=== PATIENT | female | born 1980 | race Caucasian/White ===

== ENCOUNTER 2019-06-08 09:37 | Day surgery (SDC) | payer OTHER, SELFPAY ==
[2019-06-01 08:19] VITALS: BMI 26.6
--- NOTE | 2019-06-02 08:10 | HP_ITS ---
Intake Vital Signs 06/01/19 Height 5 ft 5 in 06/01/19 Weight: 160 lb 8 oz 06/01/19 Body Mass Index (BMI) 26.6 06/01/19 Blood Pressure 98/64 06/01/19 Blood Pressure Location Rt brachial 06/01/19 Respiratory Rate 16 06/01/19 Pulse Rate 73 06/01/19 Pulse Ox 99 Intake Visit Reasons: C-Scope Consult - Self Ref due to family hx Chief Complaint: colonoscopy--family history Flight Dynamicist Required: No Is patient in pain?: No Allergies adhesive Allergy (Verified 06/01/19 08:19) Rash latex Allergy (Verified 06/01/19 08:19) Rash Penicillins Allergy (Verified 06/01/19 08:) Unknown codeine Adverse Reaction (Verified 06/01/19 08:) Vomiting Medications Etanercept [Enbrel] 50 mg SQ Q7D 02/27/15 [History Confirmed 06/01/19] prednisone 10 mg tablet 10 mg PO DAILY PRN 06/01/19 [History Confirmed 06/01/19] Is last menstrual period known: No Post menopausal: No Patient : No PFSH Medical History (Updated 06/01/19 @ 08:16 by Jennifer Gutierrez) Rheumatoid arthritis (Acute) Surgical History (Updated 06/01/19 @ 08:16 by Jennifer Gutierrez) History of section (Acute) History of section (Acute) History of section (Acute) History of colonoscopy (Acute ~2010) History of partial hysterectomy (Acute) History of wisdom tooth extraction (Acute) history of plantar fasciectomy (Acute) Family History (Updated 06/01/19 @ 08:18 by Jennifer Gutierrez) Father Colon cancer, Onset Age: 43 Mother Rheumatoid arthritis Grandmother Breast cancer Grandfather Cancer leukemia Social History (Updated 06/02/19 @ 08:10 by Lorenzo Clay MD) Smoking Status: Never smoker HPI HPI HPI: CHIN GARCIA, is a 38 F who presents to the office today for HPI HPI Surgical H&P: Yes HPI: CHIN GARCIA, is a 38 F who presents to the office today for colonoscopy. Patient reports she had colonoscopy in 2010. It was normal. She is due every 5 years as her father had colon cancer at age 43. She denies any abdominal pain or blood in her stool. ROS General General: No weight change, appetite, fatigue, colon cancer, breast cancer or weakness HEENT HEENT: No difficulty swallowing, eye injury, eye surgery, swollen glands or hoarseness Endo Endocrine: No thyroid disease, diabetes mellitus, thyroid cancer, Hair loss, heat intolerance or cold intolerance Musc Musculoskeletal: Yes rheumatoid arthritis; no back problems, arthritis, gout or joint pain Cardio Cardiovascular: No murmur, pacemaker, heart disease, atrial fibrillation, high blood pressure, heart attack, heart stent, palpitations, shortness of breat with exertion or chest pain Resp Respiratory: No shortness of breath, No sleep apnea, No cough, No COPD, No asthma, No emphysema, No wheezing Gastro Gastrointestinal: No abdominal pain, No nausea or vomiting, No diarrhea, No constipation, No blood in stool, No acid reflux, No hemorrhoids, No ulcers, No gallbladder problem, No black,tarry stools Javed Hematologic: No blood thinners, No blood disorders, No bleeding, No anemia, No blood clots Neuro Neurologic: No weakness Exam Const General: cooperative Orientation: alert, oriented x3 Resp Effort & Inspection: normal respiratory effort Auscultation: clear to auscultation bilaterally Cardio Rate: regular rate Rhythm: regular rhythm Heart Sounds: no murmurs GI Inspection: non-distended Palpation: soft, nontender Assessment & Plan Problems 1. Family history of malignant neoplasm of colon in first degree relative diagnosed when younger than 60 years of age Z80.0 Plan Patient has immediate family member which was diagnosed with cancer and under age 60. She is due for colonoscopy every 5 years. I explained endoscopy in detail to the patient. I explained the risks including but not limited to stroke or heart attack with anesthesia, perforation of the GI tract, bleeding, infection. I explained that any of these could necessitate further emergency surgery. The patient understands and all questions were answered sufficiently. The patient wishes to proceed with procedure. Lorenzo Clay MD Pager: [facility] [address] [place] [address] [place] [address] Office: Orders Orders: Colonoscopy 06/01/19 Z80.0 Coding Level of Care Code Off vis,new,level 3 Diagnoses Family history of malignant neoplasm of colon in first degree relative diagnosed when younger than 60 years of age Z80.0 06/02/19 0810 <Electronically signed by Lorenzo armendariz MD> Date _ Lorenzo Clay MD I have seen and reexamined the patient and there are no changes noted.
[2019-06-08 10:18] VITALS: BP 104/64; PULSE 56; RESP 16; TEMP 37.1; O2SAT 100; BMI 27.4
--- NOTE | 2019-06-08 11:18 | OP.ENDO_ITS ---
06/08/2019 Miguel Calvo Md Re : Colonoscopy procedure for Pattie Taylor Dear Umesh This procedure was performed on Saturday, June 08, 2019. My impressions and recommendations are as follows: Impressions : - The entire examined colon is normal on direct and retroflexion views. - No specimens collected. Recommendations : - Discharge patient to home. - Resume previous diet. - Continue present medications. - Repeat colonoscopy in 5 years for surveillance. My findings are described in the full procedure note, which is enclosed. If I can be of further assistance, please feel free to contact me at Doctor phone number(s): , Work: . Sincerely, Lorenzo Clay MD 06/08/2019 11:17:58 AM This report has been signed electronically.
[2019-06-08 11:20] VITALS: BP 104/64; BP 93/53; PULSE 70; RESP 16; TEMP 36.2; O2SAT 100
[2019-06-08 11:25] VITALS: BP 104/64; BP 95/59; PULSE 60; RESP 16; O2SAT 100
[2019-06-08 11:29] VITALS: BP 104/64; BP 95/64; PULSE 50; RESP 16; O2SAT 100
[2019-06-08 11:31] VITALS: BP 104/64; BP 97/62; PULSE 52; RESP 16; TEMP 36.3; O2SAT 100
[2019-06-08 12:16] VITALS: BP 104/64
== END 2019-06-08 12:17 | disposition home or self-care (01) ==
LOC: EN 09:38 → AC 09:40
PROVIDERS: Referring Provider Surgery; Visit Provider Surgery
PROC: 0DJD8ZZ Inspection of Lower Intestinal Tract, Via Natural or Artificial Opening Endoscopic (ICD-10-PCS; CPT 45378; principal; 2019-06-08 10:40)
DX: Z12.11 Encounter for screening for malignant neoplasm of colon (principal); M06.9 Rheumatoid arthritis, unspecified; Z88.0 Allergy status to penicillin; Z88.5 Allergy status to narcotic agent; Z91.040 Latex allergy status; Z80.0 Family history of malignant neoplasm of digestive organs
CPT/HCPCS: 45378; J7120

== ENCOUNTER → 2022-11-21 | Outpatient (CLI) | payer OTHER, SELFPAY ==
--- NOTE | 2022-11-21 16:31 | BI_ITS ---
MAMMOGRAPHY - BILATERAL SCREENING REASON FOR EXAM: Female, 42 years old. Routine annual screening examination. PERTINENT HISTORY: Grandmother with breast cancer. TECHNIQUE: Digital bilateral breast cliff (3D mammographic acquisition) in the CC and MLO projections. 2-D mediolateral oblique (MLO) and craniocaudad (CC) views of both breasts were obtained. CAD: Full Field Digital Mammography with Computer Added Detection was performed. COMPARISON: None. Baseline examination. FINDINGS: Breast Composition: The breasts are extremely dense, which lowers the sensitivity of mammography. There are no dominant masses or suspicious calcifications. No other significant abnormalities are identified. BI/SCRN MAMM (CAD)W/CLIFF BILAT IMPRESSION: Negative screening mammogram. Yearly followup mammogram recommended. (A) ASSESSMENT CATEGORY: BIRADS Category 1: Negative. A letter regarding these results will be sent to the patient by the facility within 30 days. Approximately 10% of breast cancers are not detected by mammography. A normal mammogram should not delay biopsy of a clinically suspicious abnormality. [id number] Electronically Signed: Kole Epperson MD at 8:18 EST ,
== END | disposition home or self-care (01) ==
LOC: OPBI 16:29
PROVIDERS: Referring Provider Student in an Organized Health Care Education/Training Program; Visit Provider Student in an Organized Health Care Education/Training Program
DX: Z12.31 Encounter for screening mammogram for malignant neoplasm of breast (principal)
CPT/HCPCS: 77063; 77067

== ENCOUNTER 2024-07-20 07:50 | Day surgery (SDC) | payer OTHER, SELFPAY ==
[2024-07-20] VITALS (7 sets, daily range): BP systolic 85–104; BP diastolic 49–65; PULSE 59–65; RESP 14–16; TEMP 36.4–36.6; O2SAT 96–99; BMI 29.0
--- NOTE | 2024-07-20 08:06 | PRE.ANES_ITS ---
ASA Classification* ASA Classification ASA Classification: 2 Assessment & Plan Anesthesia* Anesthesia Assessment Anesthesia Assessment: Discussed sedation and/or anesthesia options, risks, benefits, and alternatives with patient/parents/legal guardian/POA. Questions invited. The patient/parents/legal guardian/POA seems to understand and agrees to proceed with anesthesia plan. Reviewed the physical assessment, medical history, allergy history and patient home medications list prior to surgery/procedure/anesthetic and documented any changes. Performed airway and anesthesia risk assessments. Anesthesia Type Anesthesia Type: MAC (see written pre anesthesia record for full assessment) Anesthesia Focused Assessment* Airway Assessment Mouth opens: >3 cm Mallampati Score: II Focused Labs Anesthesia Preop lab: CBC WBC 10.9 K/mm3 (4.4-11.0) 11/10/16 02:15 RBC 3.61 M/mm3 (4.2-5.4) L 11/10/16 02:15 Hgb 11.5 g/dl (12.0-15.0) L 11/10/16 02:15 Hct 34.1 % (37-47) L 11/10/16 02:15 Plt Count 146 K/mm3 (150-450) L 11/10/16 02:15 CHEMISTRY Potassium 3.8 mmol/L (3.5-5.1) 08/30/16 17:15 Sodium 141 mmol/L (136-145) 08/30/16 17:15 BUN 10 mg/dL (7-18) 08/30/16 17:15 Creatinine 0.58 mg/dL (0.55-1.20) 08/30/16 17:15 Glucose 69 mg/dL (70-110) L 08/30/16 17:15 TSH 0.36 uIU/mL (0.358-3.74) 07/15/16 16:26 COAG PT 14.5 SECONDS (11.7-14.9) 11/10/16 02:45 HCG, Quant 92954 mIU/mL (<9 non-preg) H 05/28/16 16:10 Pre-Assessment Diagnosis/Proposed Procedure Planned Operative Procedure(s): COLONOSCOPY Anesthesia History Anesthesia History - college service officer: Anesthesia History - college service officer Hx Hospitalization No 07/15/24 11:23 Any Problems With Anesthesia No 07/15/24 11:23 Cholinesterase deficiency No 07/15/24 11:23 You/Your Family Experience No 07/15/24 11:23 fever (hyperthermia) with Relationship Recent Exposure to Contagious No 06/08/19 10:18 Disease Does patient have nerve No 07/15/24 11:23 stimulator Patient instructed to have device shut off --Does patient have Pacemaker or ICD? When Was Last Pacemaker Check QUESTION #4 FULL TEXT: You/Your Family Experience fever (hyperthermia) with Anesthesia Last Oral Intake Last Oral intake: Last Oral Intake NPO since Meds taken in AM with sips of water? Meds patient instructed to take am of surgery PONV PONV - college service officer: PONV - college service officer Female Yes 07/15/24 11:23 HX of Motion Sickness Yes 07/15/24 11:23 HX of N/V After Surgery Yes 07/15/24 11:23 Non-Smoker Yes 07/15/24 11:23 Duration of Surgery greater No 07/15/24 11:23 than 60 minutes Number of Risk Factors 4 07/15/24 11:23 PONV Score Severe Risk 07/15/24 11:23 Respiratory Assessment Respiratory Assessment - college service officer: Respiratory Tract Infection Hx - college service officer Hx Respiratory Tract Infection No 07/15/24 11:23 STOP Sleep Apnea STOP Sleep Apnea - college service officer: STOP Sleep Apnea - college service officer Hx Hypertension No 07/15/24 11:23 Hx Sleep Apnea No 07/15/24 11:23 CPAP BIPAP Do you snore loudly (louder No 07/15/24 11:23 than talking or can be heard Do you often feel tired/ No 07/15/24 11:23 fatigued/ sleepy during daytime? Has anyone observed you stop No 07/15/24 11:23 breathing during sleep? STOP Results Negative 07/15/24 11:23 QUESTION #5 FULL TEXT : Do you snore loudly (louder than talking or can be heard through closed doors)? Tobacco Use History Tobacco Use History - college service officer: Tobacco Use History - college service officer Tobacco Use Smoking Status Never smoker 07/15/24 11:23 Hx Tobacco Use No 07/15/24 11:23 Years Smoking Packs Smoked per Day Smoking Cessation Date was within the last 15 years Hx Smoking Cessation Date Hx Smoking Cessation Counseling Hematologic Medial History Hematologic Hx - college service officer: Hematologic Medical Hx - documentation designer Hx of Blood Transfusion No 07/15/24 11:23 Hx of Transfusion in last 3 No 07/15/24 11:23 Months Date of Last Transfusion (if within last 3 months) Ever experience any problems No 07/15/24 11:23 with transfusion(s)? Specify any problems Hx of Preganancy in last 3 No 07/15/24 11:23 Months Nurse Filling Out Transfusion EHCLANCY 07/15/24 11:23 & Questions: Date: 07/15/24 07/15/24 11:23 Time: 11:28 07/15/24 11:23 Patient unable to answer at this time (ie. confused, unrespo /Reproduction History /Reproductive History - college service officer: /Reproductive Hx- college service officer Hx Now No 07/15/24 11:23 Gestational Age (in weeks): EDC: Hx Hx Para Hx Section SAB No 07/15/24 11:23 Active Medications Active Medications: Current Medications Generic Name Dose Route Start Last Admin Trade Name Freq PRN Reason Stop Dose Admin Lactated Ringer's 1,000 mls @ 15 mls/hr 07/20/24 08:00 IV .Q48H GRACIELA PFSH Medical History Wears contact lenses Wears glasses Non-smoker Rheumatoid arthritis Home Medications ?Medication ?Instructions ?Recorded ?Last Taken ?Type multivitamin (Daily Multi-Vitamin 1 tab PO DAILY 07/15/24 Unknown History tablet) Allergy/AdvReac Type Severity Reaction Status Date / Time adhesive Allergy Rash Verified 06/01/24 09:59 latex Allergy Rash Verified 06/01/24 09:59 Penicillins Allergy Unknown Verified 06/01/24 09:59 codeine AdvReac Vomiting Verified 06/01/24 09:59 Family History Father Colon cancer, Onset Age: 43 Mother Rheumatoid arthritis Grandmother Breast cancer Grandfather Cancer leukemia Aunt Colon cancer Surgical History History of wisdom tooth extraction history of plantar fasciectomy History of section History of section History of section History of partial hysterectomy History of colonoscopy (~2010) Social History Smoking Status: Never smoker Review of Systems (Anesthesia) ROS Narrative System reviewed and no additional complaints, except as documented.
--- NOTE | 2024-07-20 08:24 | HP.PCM_ITS ---
History and Physical Date of Admission: 07/20/24 Intake Vital Signs 06/01/2409:59 Weight: 179 lb BP 116/79 Blood Pressure Location Rt brachial Position Sitting Respiration 17 Pulse 57 L Pulse Source Monitor Pulse Oximetry (%) 100 Oxygen Delivery Method room air Intake Visit Reasons: RECALL COLONOSCOPY Chief Complaint: recall colonoscopy--family history Is patient in pain?: No Allergies adhesive Allergy (Verified 06/01/24 09:59) Rashlatex Allergy (Verified 06/01/24 09:59) RashPenicillins Allergy (Verified 06/01/24 09:59) Unknowncodeine Adverse Reaction (Verified 06/01/24 09:59) Vomiting PFSH Medical History (Updated 06/01/24 @ 09:57 by Marcelina Eddy) Rheumatoid arthritis Surgical History (Updated 05/16/22 @ 03:36 by Tomás Martinez) History of wisdom tooth extraction history of plantar fasciectomy History of section History of section History of section History of partial hysterectomy History of colonoscopy (~2010) Family History (Updated 06/01/24 @ 09:58 by Marcelina Eddy) Father Colon cancer, Onset Age: 43Mother Rheumatoid arthritisGrandmother Breast cancerGrandfather Cancer leukemiaAunt Colon cancer Social History Smoking Status: Never smoker HPI HPI HPI: Patient is a 43-year-old female here for follow-up colonoscopy. Her last colonoscopy was 5 years ago. She is at increased risk due to family history. She has colon cancer in her father at a young age in his 40s and now her aunt has also been diagnosed with colon cancer. She denies blood in the stool or abdominal pain or any changes since her last exam 5 years ago. ROS General General: No weight change, appetite, fatigue, colon cancer, breast cancer or weakness HEENT HEENT: No difficulty swallowing, eye injury, eye surgery, swollen glands or hoarseness Endo Endocrine: No thyroid disease, diabetes mellitus, thyroid cancer, Hair loss, heat intolerance or cold intolerance Skin Skin: No rash or changing moles Musc Musculoskeletal: Yes rheumatoid arthritis; No back problems, arthritis, gout or joint pain Cardio Cardiovascular: No murmur, pacemaker, heart disease, atrial fibrillation, high blood pressure, heart attack, heart stent, palpitations, shortness of breat with exertion or chest pain Psych Psychiatric: No depression, anxiety or hearing voices Resp Respiratory: No shortness of breath, No sleep apnea, No cough, No COPD, No asthma, No emphysema and No wheezing Gastro Gastrointestinal: No abdominal pain, No nausea or vomiting, No diarrhea, No constipation, No blood in stool, No acid reflux, No hemorrhoids, No ulcers, No gallbladder problem and No black,tarry stools Javed Hematologic: No blood thinners, No blood disorders, No bleeding, No anemia and No blood clots Neuro Neurologic: No system reviewed and no additional complaints, except as documented, No as per HPI, No abnormal gait, No abnormal hearing, No abnormal movements, No abnormal speech, No behavioral changes, No burning sensations, No confusion, No convulsions, No disequilibrium, No dizziness, No localized weakness, No frequent falls, No headache(s), No lack of coordination, No loss of vision, No memory loss, No numbness, No other visual disturbances, No radicular pain, No restless legs, No sensory deficit, No syncope, No tingling, No tremor(s), No weakness and No other Exam Const General: cooperative Orientation: alert and oriented x3 HENMT Head: normal to inspection Neck Neck: normal visual inspection and full ROM Chest Chest palpation & inspection: normal inspection of the chest Resp Effort & Inspection: normal respiratory effort Auscultation: clear to auscultation bilaterally Cardio Rate: regular rate Rhythm: regular rhythm GI Inspection: non-distended Palpation: soft and nontender Skin General: no rashes or lesions noted Neuro General: patient alert and patient oriented x3 Extrem General: full ROM Psych Appearance: grossly normal Mental Status: mental status grossly normal Assessment and Plan Assessment and Plan (1) Encounter for colonoscopy in patient with family history of colon cancer: Status: Acute Plan: Patient is due for surveillance colonoscopy. I explained endoscopy in detail to the patient. I explained the risks including but not limited to stroke or heart attack with anesthesia, perforation of the GI tract, bleeding, infection. I explained that any of these could necessitate further emergency surgery. The patient understands and all questions were answered sufficiently. The patient wishes to proceed with procedure. Lorenzo Clay MD Pager: [facility] [address] [place] [address], [address] [place] [address] Office: I have examined the patient and the H&P has been reviewed. There are no clinical changes since date of exam.
[2024-07-20] MEDS: Lactated Ringers 1,000 ML 15 ML IV (08:27)
--- NOTE | 2024-07-20 09:13 | OP.COLON_ITS ---
Patient Name: Pattie Taylor Procedure Date: 07/20/2024 8:52 AM Date of : 1980 Age: 43 Procedure: Colonoscopy Indications: Screening in patient at increased risk: Family history of 1st-degree relative with colorectal cancer before age 60 years Providers: Lorenzo Clay MD Medicines: Propofol per Anesthesia Patient Profile: This is a 43 year old female. Refer to note in patient chart for documentation of history and physical. Last Colonoscopy: 5 years ago. Complications: No immediate complications. Procedure: Pre-Anesthesia Assessment: - Prior to the procedure, a History and Physical was performed, and patient medications and allergies were reviewed. The patient's tolerance of previous anesthesia was also reviewed. The risks and benefits of the procedure and the sedation options and risks were discussed with the patient. All questions were answered, and informed consent was obtained. Prior Anticoagulants: The patient has taken no anticoagulant or antiplatelet agents. ASA Grade Assessment: II - A patient with mild systemic disease. After reviewing the risks and benefits, the patient was deemed in satisfactory condition to undergo the procedure. After I obtained informed consent, the scope was passed under direct vision. Throughout the procedure, the patient's blood pressure, pulse, and oxygen saturations were monitored continuously. The Colonoscope was introduced through the anus and advanced to the cecum, identified by appendiceal orifice and ileocecal valve. The colonoscopy was performed without difficulty. The patient tolerated the procedure well. The quality of the bowel preparation was good. The ileocecal valve, appendiceal orifice, and rectum were photographed. Scope In: 8:57:16 AM Scope Withdrawal Time 0 hours 6 minutes 18 seconds Scope Out: 9:10:12 AM Total Procedure Duration Time 0 hours 12 minutes 56 seconds Findings: The entire examined colon appeared normal on direct and retroflexion views. Impression: - The entire examined colon is normal on direct and retroflexion views. - No specimens collected. Recommendation: - Discharge patient to home. - Resume previous diet. - Continue present medications. - Repeat colonoscopy in 5 years for screening purposes. Procedure Code(s): --- Professional --- 31186, Colonoscopy, flexible; diagnostic, including collection of specimen(s) by brushing or washing, when performed (separate procedure) Diagnosis Code(s): --- Professional --- Z80.0, Family history of malignant neoplasm of digestive organs CPT copyright 2021 [employer]. All rights reserved. The codes documented in this report are preliminary and upon ward secretary review may be revised to meet current compliance requirements. Lorenzo Clay MD 07/20/2024 9:13:10 AM This report has been signed electronically. Number of Addenda: 0 Note Initiated On: 07/20/2024 8:52 AM
--- NOTE | 2024-07-20 09:13 | OP.CCLET_ITS ---
07/20/2024 No Primary Care Physician Re : Colonoscopy procedure for Pattie Taylor Dear Care Physician This procedure was performed on Saturday, July 20, 2024. My impressions and recommendations are as follows: Impressions : - The entire examined colon is normal on direct and retroflexion views. - No specimens collected. Recommendations : - Discharge patient to home. - Resume previous diet. - Continue present medications. - Repeat colonoscopy in 5 years for screening purposes. My findings are described in the full procedure note, which is enclosed. If I can be of further assistance, please feel free to contact me at Doctor phone number(s): , Work: . Sincerely, Lorenzo Clay MD 07/20/2024 9:13:10 AM This report has been signed electronically.
--- NOTE | 2024-07-20 09:16 | PCM.POST.ANE ---
Anesthesia: Postop Eval I Current Vital Signs Temperature: 97.9 F Pulse Rate: 60 Blood Pressure: 91/54 Respiratory Rate: 14 Pulse Ox: 97 Oxygen Delivery Method: Room Air Assessment Airway patent: Yes Spontaneous unlabored respirations: Yes Mental status: Asleep nausea: No Vomiting: No Anesthesia Complication: No Fluid Hydration Crystalloid volume administer (ml): 600 Total IV fluid infused: 600 Progress Note Anesthesia document: Postop Eval 1 completed: Yes
--- NOTE | 2024-07-20 09:19 | PCM.POSTANE2 ---
Anesthesia Postop Eval I Sum Postop Eval Completion status Anesthesia document: Postop Eval 1 completed: Yes Anesthesia Postop Eval I Summary Anesthesia Postop Eval I Summary: Anesthesia Postop Eval I: Assessment Summary Airway patent Yes 07/20/24 09:17 [email or web address] Spontaneous unlabored Yes 07/20/24 09:17 [email or web address] respirations Mental status Asleep 07/20/24 09:17 [email or web address] nausea No 07/20/24 09:17 [email or web address] Vomiting No 07/20/24 09:17 [email or web address] Anesthesia Postop Eval I: Fluid Summary Crystalloid volume administer 600 07/20/24 09:17 [email or web address] (ml) Colloids volume administered ( ml) Blood Product volume administered (ml) Total IV fluid infused 600 07/20/24 09:17 [email or web address] Anesthesia Postop Eval I: Summary Notes Anesthesia Complication No 07/20/24 09:17 [email or web address] Anesthesia Complication Comment: Post-operative progress note Anesthesia: Postop Eval II Evaluation Mental status: Awake Pain Level: 0 nausea: No Vomiting: No
== END 2024-07-20 10:08 | disposition home or self-care (01) ==
LOC: EN 07:52 → AC 07:54
PROVIDERS: Referring Provider Surgery; Visit Provider Surgery
PROC: 0DJD8ZZ Inspection of Lower Intestinal Tract, Via Natural or Artificial Opening Endoscopic (ICD-10-PCS; CPT 45378; principal; 2024-07-20 08:40)
DX: Z12.11 Encounter for screening for malignant neoplasm of colon (principal); Z80.0 Family history of malignant neoplasm of digestive organs
CPT/HCPCS: 45378; J7120; J2405